=== PATIENT | male | born 1955 | race Caucasian/White ===

== ENCOUNTER → 2019-01-18 | Outpatient (CLI) | payer OTHER ==
[~2019-01-18] MED LIST: ATORVASTATIN CA80 M1 PO; CIPRO500 MG PO; CLOPIDOGREL75 MG PO; CYCLOBENZAPRINE5 M3 PO; FLAGYL500 MG PO; FUROSEMIDE40 MG PO; HARVONI1 TAB PO; IMODIUM A-D2 M2 PO; LISINOPRIL10 M1 PO; METFORMIN HCL500 M2 PO; MIRALAX17 GM/DOSE PO; POTASSIUM CHLO20 ME4 PO; SUBOXONE 8 MG-1 EACH SL
[2019-01-18 16:39] LABS: BASO # 0.1 10*3/uL (0.0-0.1); BASO % 0.3 % (0.0-1.0); EOS # 0.3 10*3/uL (0.0-0.4); EOS % 1.9 % (1.0-4.0); HEMATOCRIT 33.7 % (42.0-52.0); HEMOGLOBIN 11.1 g/dl (14.0-18.0); LYMPH # 1.9 10*3/uL (1.3-4.4); LYMPH % 10.3 % (27.0-41.0); MEAN CORPUSCULAR HGB 32.3 pg (27.0-31.0); MEAN CORPUSCULAR HGB CONC 32.9 g/dl (33.0-37.0); MEAN PLATELET VOLUME 9.3 fl (9.6-12.3); MONO # 0.9 10*3/uL (0.1-1.0); MONO % 4.9 % (3.0-9.0); NEUT # 14.8 10*3/uL (2.3-7.9); NEUT % 81.4 % (47.0-73.0); PLATELET COUNT AUTOMATED 619 10*3/uL (130-400); RED BLOOD COUNT 3.44 10*6/uL (4.50-5.90); RED CELL DISTRI WIDTH 12.2 % (0-14.5); WHITE BLOOD COUNT 18.1 10*3/uL (4.8-10.8)
[2019-01-18 17:07] LABS: BUN 33 mg/dl (7-24); CHLORIDE 98 mmol/L (98-107); CREATININE 1.19 mg/dL (0.70-1.30); POTASSIUM 3.9 mmol/L (3.5-5.1); SODIUM 134 mmol/L (136-145)
== END | disposition home or self-care (01) ==
LOC: LAB 16:07
PROVIDERS: Surgery
DX: D64.9 Anemia, unspecified (principal); R35.8 Other polyuria

== ENCOUNTER 2019-01-20 05:10 | Emergency (ER) | payer OTHER ==
[~2019-01-20] VITALS: Ht 175.2 cm; Wt 65.8 kg
--- NOTE | ~2019-01-20 | EKG ---
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
--- NOTE | ~2019-01-20 | EKG ---
[place], [place] ELECTROCARDIOGRAM REPORT NAME: JOHN ALONZO UNIT #: [id number] ROOM: DOCTOR: ANDREW DRAFT REPORT BIRTHDATE: [address] [facility] Test Date: 2019-01-20 Test Time: 05:29:24 Pat Name: JOHN ALONZO Department: Room: Gender: Icing Maker: SUSAN : 1955 Requested By: ANASTACIA WOODS Order Number: [id number] Reading MD: Measurements Intervals [place] Rate: 103 P: 73 NC: 147 QRS: 77 QRSD: 91 T: 108 QT: 358 QTc: 469 Interpretive Statements Sinus tachycardia Atrial premature complex Nonspecific T abnormalities, lateral leads Baseline wander in lead(s) I,III,aVL,V2,V3 Compared to ECG 12/27/2018 05:15:27 Atrial premature complex(es) now present Sinus rhythm no longer present Left-axis deviation no longer present T-wave abnormality still present CM:EKGRPT:ELECTROCARDIOGRAM REPORT 0529 [id number] ANASTACIA MONTES DE OCA DRAFT REPORT ANASTACIA WOODS DO
[~2019-01-20 05:10] MED LIST changes: -ATORVASTATIN CA80 M1 PO; -CLOPIDOGREL75 MG PO; -FUROSEMIDE40 MG PO; -IMODIUM A-D2 M2 PO; -POTASSIUM CHLO20 ME4 PO
[2019-01-20] MEDS ORDERED: FUROSEMIDE40 MG PO (05:17)
[2019-01-20] MEDS ORDERED: ATORVASTATIN CA80 M1 PO (05:18)
[2019-01-20] MEDS ORDERED: POTASSIUM CHLO20 ME4 PO (05:18)
[2019-01-20] MEDS ORDERED: CLOPIDOGREL75 MG PO (05:18)
[2019-01-20] MEDS ORDERED: SUBOXONE 8 MG-1 EACH SL (05:18)
[2019-01-20 05:31] LABS: BASO # 0.1 10*3/uL (0.0-0.1); BASO % 0.4 % (0.0-1.0); EOS # 0.1 10*3/uL (0.0-0.4); EOS % 0.8 % (1.0-4.0); HEMATOCRIT 36.9 % (42.0-52.0); HEMOGLOBIN 12.6 g/dl (14.0-18.0); LYMPH # 1.6 10*3/uL (1.3-4.4); LYMPH % 9.9 % (27.0-41.0); MEAN CORPUSCULAR HGB 32.4 pg (27.0-31.0); MEAN CORPUSCULAR HGB CONC 34.1 g/dl (33.0-37.0); MEAN PLATELET VOLUME 9.2 fl (9.6-12.3); MONO # 0.9 10*3/uL (0.1-1.0); MONO % 5.8 % (3.0-9.0); NEUT # 13.2 10*3/uL (2.3-7.9); NEUT % 82.3 % (47.0-73.0); PLATELET COUNT AUTOMATED 680 10*3/uL (130-400); RED BLOOD COUNT 3.89 10*6/uL (4.50-5.90); RED CELL DISTRI WIDTH 12.2 % (0-14.5)
[2019-01-20 05:37] LABS: MEAN CELL VOLUME 94.9 fl (80.0-94.0)
[2019-01-20 05:42] LABS: ACT PARTIAL THROMBO TIME 23.6 SECONDS (20.0-32.1); INTERNATIONAL NORM RATIO 1.2 (2.0-3.5)
[2019-01-20 05:49] LABS: ALBUMIN 3.9 gm/dl (3.1-4.5); ALKALINE PHOSPHATASE 142 U/L (45-117); BUN 24 mg/dl (7-24); CHLORIDE 97 mmol/L (98-107); CREATININE 1.07 mg/dL (0.70-1.30); POTASSIUM 3.7 mmol/L (3.5-5.1); SGOT/AST 53 IU/L (3-35); SGPT/ALT 109 U/L (12-78); SODIUM 135 mmol/L (136-145); TOTAL PROTEIN 8.9 gm/dL (6.4-8.2); TROPONIN I 0.026 ng/ml (<0.045)
[2019-01-20 08:35] VITALS: BP 130/88
[2019-01-20] MEDS ORDERED: IMODIUM A-D2 M2 PO (08:56)
== END 2019-01-20 09:44 | disposition home or self-care (01) ==
LOC: ED 05:10
PROVIDERS: Student in an Organized Health Care Education/Training Program
DX: K52.9 Noninfective gastroenteritis and colitis, unspecified (principal); R06.02 Shortness of breath; E11.9 Type 2 diabetes mellitus without complications; I25.2 Old myocardial infarction; F17.200 Nicotine dependence, unspecified, uncomplicated; Z95.1 Presence of aortocoronary bypass graft; Z88.0 Allergy status to penicillin; Z79.899 Other long term (current) drug therapy; Z79.84 Long term (current) use of oral hypoglycemic drugs; Z90.49 Acquired absence of other specified parts of digestive tract

== ENCOUNTER 2020-05-16 21:33 | Inpatient (IN) | payer OTHER ==
[~2020-05-16] VITALS: Ht 175.2 cm; Wt 74.4 kg
[~2020-05-16 21:33] MED LIST changes: +ATORVASTATIN CA80 M1 PO; +CLOPIDOGREL75 MG PO; +FUROSEMIDE40 MG PO; +IMODIUM A-D2 M2 PO; +POTASSIUM CHLO20 ME4 PO
[2020-05-16 21:48] VITALS: BP 192/133
[2020-05-16 22:02] LABS: BASO # 0.1 10*3/uL (0.0-0.1); BASO % 0.8 % (0.0-1.0); EOS # 0.6 10*3/uL (0.0-0.4); EOS % 6.4 % (1.0-4.0); HEMATOCRIT 44.1 % (42.0-52.0); LYMPH # 1.7 10*3/uL (1.3-4.4); LYMPH % 19.6 % (27.0-41.0); MEAN CELL VOLUME 95.7 fl (80.0-94.0); MEAN CORPUSCULAR HGB 31.5 pg (27.0-31.0); MEAN CORPUSCULAR HGB CONC 32.9 g/dl (33.0-37.0); MEAN PLATELET VOLUME 10.1 fl (9.6-12.3); MONO # 0.6 10*3/uL (0.1-1.0); MONO % 7.3 % (3.0-9.0); NEUT # 5.6 10*3/uL (2.3-7.9); NEUT % 64.4 % (47.0-73.0); PLATELET COUNT AUTOMATED 237 10*3/uL (130-400); RED BLOOD COUNT 4.61 10*6/uL (4.50-5.90); RED CELL DISTRI WIDTH 13.2 % (0-14.5); WHITE BLOOD COUNT 8.7 10*3/uL (4.8-10.8)
[2020-05-16 22:11] LABS: ACT PARTIAL THROMBO TIME 24.7 SECONDS (20.0-32.1)
[2020-05-16 22:23] LABS: ALBUMIN 4.1 gm/dl (3.1-4.5); ALKALINE PHOSPHATASE 66 U/L (45-117); BUN 15 mg/dl (7-24); CHLORIDE 107 mmol/L (98-107); CREATININE 0.84 mg/dL (0.70-1.30); LIPASE 73 U/L (73-393); SGOT/AST 24 IU/L (3-35); SGPT/ALT 34 U/L (12-78); SODIUM 138 mmol/L (136-145); TOTAL PROTEIN 8.2 gm/dL (6.4-8.2); TROPONIN I 0.027 ng/ml (<0.045)
[2020-05-17] VITALS (8 sets, daily range): BP systolic 116–167; BP diastolic 81–116
[2020-05-18] VITALS: BP 144/94
[2020-05-18 07:20] LABS: BASO # 0.1 10*3/uL (0.0-0.1); BASO % 0.7 % (0.0-1.0); EOS # 0.4 10*3/uL (0.0-0.4); EOS % 5.6 % (1.0-4.0); HEMATOCRIT 48.8 % (42.0-52.0); LYMPH # 1.7 10*3/uL (1.3-4.4); LYMPH % 23.8 % (27.0-41.0); MEAN CELL VOLUME 94.6 fl (80.0-94.0); MEAN CORPUSCULAR HGB 30.4 pg (27.0-31.0); MEAN CORPUSCULAR HGB CONC 32.2 g/dl (33.0-37.0); MEAN PLATELET VOLUME 10.4 fl (9.6-12.3); MONO # 0.6 10*3/uL (0.1-1.0); NEUT # 4.3 10*3/uL (2.3-7.9); NEUT % 60.6 % (47.0-73.0); PLATELET COUNT AUTOMATED 251 10*3/uL (130-400); RED BLOOD COUNT 5.16 10*6/uL (4.50-5.90); RED CELL DISTRI WIDTH 12.9 % (0-14.5); WHITE BLOOD COUNT 7.1 10*3/uL (4.8-10.8)
[2020-05-18 07:28] LABS: ACT PARTIAL THROMBO TIME 25.1 SECONDS (20.0-32.1); INTERNATIONAL NORM RATIO 1.1 (2.0-3.5)
[2020-05-18 07:50] LABS: ALBUMIN 3.9 gm/dl (3.1-4.5); ALKALINE PHOSPHATASE 67 U/L (45-117); BUN 24 mg/dl (7-24); CHLORIDE 104 mmol/L (98-107); CHOLESTEROL 150 mg/dL (<200); HDL CHOLESTEROL 42 mg/dl (40-60); LDL CHOLESTEROL 80 mg/dL (9-159); POTASSIUM 3.8 mmol/L (3.5-5.1); SGOT/AST 20 IU/L (3-35); SGPT/ALT 35 U/L (12-78); SODIUM 138 mmol/L (136-145); TOTAL PROTEIN 7.9 gm/dL (6.4-8.2); TRIGLYCERIDES 140 mg/dl (<150); VLDL CHOLESTEROL 28 mg/dL (6-40)
[2020-05-18 07:55] LABS: THYROID STIM HORMONE (HS) 0.365 uIU/ml (0.358-4.75)
[2020-05-18 08:00] VITALS: BP 150/90
[2020-05-18 08:40] LABS: VITAMIN D, 25-HYDROXY 28.5 ng/mL (30-100)
[2020-05-18] MEDS ORDERED: GLIPIZIDE10 M2 PO (09:07)
[2020-05-18] MEDS ORDERED: ANORO ELLIPTA1 EACH INH (09:07)
[2020-05-18 12:00] VITALS: BP 109/74
[2020-05-18 16:00] VITALS: BP 112/68
[2020-05-18] MEDS ORDERED: ASPIRIN CHEWABL81 MG PO (17:51)
[2020-05-18] MEDS ORDERED: METOPROLOL SUCC50 M2 PO (17:52)
[2020-05-18] MEDS ORDERED: LIPITOR80 MG PO (17:52)
[2020-05-18 20:00] VITALS: BP 95/61
[2020-05-18 21:54] VITALS: BP 108/62
[2020-05-19] VITALS: BP 99/72
[2020-05-19 08:00] VITALS: BP 129/77
[2020-05-19 09:20] LABS: CHLORIDE 99 mmol/L (98-107); CREATININE 1.09 mg/dL (0.70-1.30); POTASSIUM 3.5 mmol/L (3.5-5.1); SODIUM 136 mmol/L (136-145)
[2020-05-19 09:24] LABS: BUN 35 mg/dl (7-24)
[2020-05-19] MEDS ORDERED: METOPROLOL SUCC25 M2 PO (11:51)
[2020-05-19] MEDS ORDERED: LISINOPRIL2.5 MG PO (11:51)
[2020-05-19] MEDS ORDERED: LASIX20 MG PO (11:51)
[2020-05-19 12:00] VITALS: BP 125/68
== END 2020-05-19 13:43 | disposition home or self-care (01) | DRG 292 ==
LOC: ED 21:33 → 4E 05-17 01:39 → EDHOLD 05-17 01:39 → 4E 05-17 02:39
PROVIDERS: Internal Medicine; Nurse Practitioner Family; ADMIT Internal Medicine; ATTEND Internal Medicine
DX: I11.0 Hypertensive heart disease with heart failure (principal); R65.10 Systemic inflammatory response syndrome (SIRS) of non-infectious origin without acute organ dysfunction; I50.23 Acute on chronic systolic (congestive) heart failure; J44.9 Chronic obstructive pulmonary disease, unspecified; D75.89 Other specified diseases of blood and blood-forming organs; R19.7 Diarrhea, unspecified; K57.90 Diverticulosis of intestine, part unspecified, without perforation or abscess without bleeding; E11.65 Type 2 diabetes mellitus with hyperglycemia; Z88.0 Allergy status to penicillin; I25.2 Old myocardial infarction; Z90.49 Acquired absence of other specified parts of digestive tract; Z95.1 Presence of aortocoronary bypass graft; Z87.891 Personal history of nicotine dependence; Z82.2 Family history of deafness and hearing loss; Z79.02 Long term (current) use of antithrombotics/antiplatelets

== ENCOUNTER 2020-09-24 20:20 | Inpatient (IN) | payer MEDICARE, OTHER ==
[~2020-09-24] VITALS: Ht 175.2 cm; Wt 80.3 kg
[~2020-09-24 20:20] MED LIST changes: +ANORO ELLIPTA1 EACH INH; +ASPIRIN CHEWABL81 MG PO; +GLIPIZIDE10 M2 PO; +LASIX20 MG PO; +LIPITOR80 MG PO; +LISINOPRIL2.5 MG PO; +METOPROLOL SUCC25 M2 PO; +METOPROLOL SUCC50 M2 PO
[2020-09-24 20:29] VITALS: BP 147/130
[2020-09-24 21:28] LABS: BASO % 0.2 % (0.0-1.0); EOS % 0.1 % (1.0-4.0); LYMPH # 0.6 10*3/uL (1.3-4.4); LYMPH % 5.5 % (27.0-41.0); MEAN CORPUSCULAR HGB 31.5 pg (27.0-31.0); MEAN CORPUSCULAR HGB CONC 31.8 g/dl (33.0-37.0); MEAN PLATELET VOLUME 10.5 fl (9.6-12.3); MONO # 0.5 10*3/uL (0.1-1.0); NEUT % 88.1 % (47.0-73.0); PLATELET COUNT AUTOMATED 215 10*3/uL (130-400); RED BLOOD COUNT 3.84 10*6/uL (4.50-5.90); RED CELL DISTRI WIDTH 12.9 % (0-14.5); WHITE BLOOD COUNT 10.2 10*3/uL (4.8-10.8)
[2020-09-24 21:50] LABS: ALBUMIN 3.9 gm/dl (3.1-4.5); CREATININE 5.69 mg/dL (0.70-1.30); POTASSIUM 4.6 mmol/L (3.5-5.1)
[2020-09-24 21:53] LABS: TROPONIN I 0.644 ng/ml (<0.045)
[2020-09-25] VITALS (10 sets, daily range): BP systolic 93–160; BP diastolic 54–90
[2020-09-25 03:06] LABS: BASO % 0.4 % (0.0-1.0); EOS % 0.4 % (1.0-4.0); HEMATOCRIT 39.2 % (42.0-52.0); LYMPH # 1.1 10*3/uL (1.3-4.4); LYMPH % 14.2 % (27.0-41.0); MEAN CELL VOLUME 100.5 fl (80.0-94.0); MEAN CORPUSCULAR HGB 32.1 pg (27.0-31.0); MEAN CORPUSCULAR HGB CONC 31.9 g/dl (33.0-37.0); MEAN PLATELET VOLUME 10.1 fl (9.6-12.3); MONO # 0.8 10*3/uL (0.1-1.0); MONO % 9.8 % (3.0-9.0); NEUT # 5.8 10*3/uL (2.3-7.9); NEUT % 74.4 % (47.0-73.0); PLATELET COUNT AUTOMATED 175 10*3/uL (130-400); RED CELL DISTRI WIDTH 12.8 % (0-14.5); WHITE BLOOD COUNT 7.8 10*3/uL (4.8-10.8)
[2020-09-25 03:22] LABS: ALBUMIN 3.9 gm/dl (3.1-4.5); CREATININE 4.33 mg/dL (0.70-1.30); POTASSIUM 4.6 mmol/L (3.5-5.1)
[2020-09-25 03:29] LABS: THYROID STIM HORMONE (HS) 0.21 uIU/ml (0.358-4.75)
[2020-09-25 06:55] LABS: VITAMIN D, 25-HYDROXY 8.1 ng/mL (30-100)
[2020-09-25 09:20] LABS: BILIRUBIN Negative (Negative); BLOOD 2+ (Negative); CLARITY Clear (Clear); COLOR Yellow (Yellow); GLUCOSE Negative (Negative); KETONE Trace (Negative); LEUKO ESTERASE Negative (Negative); NITRITE Negative (Negative); PH 5.5 (4.5-8.0)
[2020-09-25 09:27] LABS: URINE AMPHETAMINES < 1000 (1000ng/ml); URINE BARBITURATES < 200 (200ng/ml); URINE BENZODIAZEPINES < 200 (200ng/ml); URINE CANNABINOIDS (THC) < 50 (50ng/ml); URINE COCAINE < 300 (300ng/ml); URINE METHADONE < 300 (300ng/ml); URINE OPIATES > 300 (300ng/ml)
[2020-09-25 09:29] LABS: URINE PHENCYCLIDINE < 25 (25ng/ml)
[2020-09-25 09:33] LABS: BACTERIA TRACE
[2020-09-25] MEDS ORDERED: ZESTRIL10 MG PO (16:46)
[2020-09-25] MEDS ORDERED: METOPROLOL SUCC50 M1 PO (16:47)
[2020-09-25 20:52] LABS: ABG BASE EXCESS -5.6 mmol/L (-2.0-2.0); ARTERIAL BLOOD GAS PH 7.304 (7.35-7.45); ARTERIAL BLOOD GAS PO2 40.6 (80-90)
[2020-09-26] VITALS: BP 147/94; BP 92/56
[2020-11-16] MEDS ORDERED: VITAMIN D350 MC2 PO (13:15)
[2020-11-16] MEDS ORDERED: DOXYCYCLINE100 M3 PO (13:15)
[2020-11-16] MEDS ORDERED: HYDROXYZINE HCL25 MG PO (13:15)
[2020-11-16] MEDS ORDERED: XARE20MG PO (13:15)
[2020-11-16] MEDS ORDERED: LASIX40 MG PO (13:15)
[2020-11-16] MEDS ORDERED: METOPROLOL SUC100 M1 PO (13:15)
== END 2020-09-26 04:21 | disposition short-term general hospital (02) | DRG 280 ==
LOC: ED 20:20 → EDHOLD 22:14 → 4E 22:14
PROVIDERS: Family Medicine; Internal Medicine; Physician Assistant; ADMIT Student in an Organized Health Care Education/Training Program; ATTEND Student in an Organized Health Care Education/Training Program
DX: I21.4 Non-ST elevation (NSTEMI) myocardial infarction (principal); N17.0 Acute kidney failure with tubular necrosis; G93.41 Metabolic encephalopathy; I25.810 Atherosclerosis of coronary artery bypass graft(s) without angina pectoris; S52.502A Unspecified fracture of the lower end of left radius, initial encounter for closed fracture; E72.20 Disorder of urea cycle metabolism, unspecified; I42.9 Cardiomyopathy, unspecified; I50.32 Chronic diastolic (congestive) heart failure; E55.9 Vitamin D deficiency, unspecified; F11.90 Opioid use, unspecified, uncomplicated; Z20.822 Contact with and (suspected) exposure to COVID-19; B19.20 Unspecified viral hepatitis C without hepatic coma; K57.90 Diverticulosis of intestine, part unspecified, without perforation or abscess without bleeding; E87.5 Hyperkalemia; J43.9 Emphysema, unspecified; I11.0 Hypertensive heart disease with heart failure; E66.3 Overweight; E78.5 Hyperlipidemia, unspecified; M25.532 Pain in left wrist; R74.01 Elevation of levels of liver transaminase levels; D53.9 Nutritional anemia, unspecified; E87.8 Other disorders of electrolyte and fluid balance, not elsewhere classified; E11.65 Type 2 diabetes mellitus with hyperglycemia; Z88.0 Allergy status to penicillin; Z90.49 Acquired absence of other specified parts of digestive tract; Z82.49 Family history of ischemic heart disease and other diseases of the circulatory system; Z95.1 Presence of aortocoronary bypass graft; Z68.25 Body mass index [BMI] 25.0-25.9, adult; X58.XXXA Exposure to other specified factors, initial encounter; Y93.89 Activity, other specified; Y92.89 Other specified places as the place of occurrence of the external cause; Y99.8 Other external cause status

== ENCOUNTER 2020-11-23 17:08 | Inpatient (IN) | payer OTHER ==
[~2020-11-23] VITALS: Ht 175.2 cm; Wt 70.1 kg
[~2020-11-23 17:08] MED LIST changes: +DOXYCYCLINE100 M3 PO; +HYDROXYZINE HCL25 MG PO; +LASIX40 MG PO; +METOPROLOL SUC100 M1 PO; +METOPROLOL SUCC50 M1 PO; +VITAMIN D350 MC2 PO; +XARE20MG PO; +ZESTRIL10 MG PO
[2020-11-23 18:09] VITALS: BP 116/76
[2020-11-23 20:46] VITALS: BP 134/106
[2020-11-23 21:41] LABS: BASO # 0.1 10*3/uL (0.0-0.1); BASO % 0.6 % (0.0-1.0); EOS # 0.1 10*3/uL (0.0-0.4); EOS % 0.5 % (1.0-4.0); HEMATOCRIT 51.5 % (42.0-52.0); LYMPH # 1.3 10*3/uL (1.3-4.4); LYMPH % 12.1 % (27.0-41.0); MEAN CELL VOLUME 92.1 fl (80.0-94.0); MEAN CORPUSCULAR HGB 30.8 pg (27.0-31.0); MEAN CORPUSCULAR HGB CONC 33.4 g/dl (33.0-37.0); MEAN PLATELET VOLUME 10.3 fl (9.6-12.3); MONO % 8.8 % (3.0-9.0); NEUT # 8.5 10*3/uL (2.3-7.9); NEUT % 77.4 % (47.0-73.0); PLATELET COUNT AUTOMATED 427 10*3/uL (130-400); RED BLOOD COUNT 5.59 10*6/uL (4.50-5.90); RED CELL DISTRI WIDTH 12.4 % (0-14.5)
[2020-11-23 21:55] LABS: ACT PARTIAL THROMBO TIME 25.9 SECONDS (20.0-32.1); INTERNATIONAL NORM RATIO 1.2 (2.0-3.5)
[2020-11-23 21:57] LABS: ALBUMIN 4.3 gm/dl (3.1-4.5); ALKALINE PHOSPHATASE 116 U/L (45-117); BUN 17 mg/dl (7-24); CHLORIDE 101 mmol/L (98-107); CREATININE 1.32 mg/dL (0.70-1.30); LIPASE 171 U/L (73-393); POTASSIUM 3.5 mmol/L (3.5-5.1); SGOT/AST 35 IU/L (3-35); SGPT/ALT 54 U/L (12-78); SODIUM 134 mmol/L (136-145); TOTAL PROTEIN 9.2 gm/dL (6.4-8.2)
[2020-11-23 22:01] LABS: TROPONIN I 0.052 ng/ml (<0.045)
[2020-11-23 22:37] LABS: BILIRUBIN Negative (Negative); BLOOD Trace-Lysed (Negative); CLARITY Clear (Clear); COLOR Yellow (Yellow); GLUCOSE 3+ (Negative); KETONE 2+ (Negative); LEUKO ESTERASE Negative (Negative); NITRITE Negative (Negative); PH 6.5 (4.5-8.0); SPECIFIC GRAVITY >= 1.030 (1.001-1.030); UROBILINOGEN 0.2 E.U./dl (0.0-1.0)
[2020-11-24 00:34] VITALS: BP 177/114
[2020-11-24 01:37] VITALS: BP 154/95
[2020-11-24 03:54] LABS: BASO # 0.1 10*3/uL (0.0-0.1); BASO % 0.6 % (0.0-1.0); EOS # 0.1 10*3/uL (0.0-0.4); EOS % 0.8 % (1.0-4.0); HEMATOCRIT 49.8 % (42.0-52.0); LYMPH # 1.7 10*3/uL (1.3-4.4); LYMPH % 17.5 % (27.0-41.0); MEAN CELL VOLUME 91.7 fl (80.0-94.0); MEAN CORPUSCULAR HGB 30.9 pg (27.0-31.0); MEAN CORPUSCULAR HGB CONC 33.7 g/dl (33.0-37.0); MEAN PLATELET VOLUME 9.9 fl (9.6-12.3); MONO # 0.9 10*3/uL (0.1-1.0); MONO % 8.8 % (3.0-9.0); NEUT # 7.1 10*3/uL (2.3-7.9); NEUT % 71.9 % (47.0-73.0); PLATELET COUNT AUTOMATED 365 10*3/uL (130-400); RED BLOOD COUNT 5.43 10*6/uL (4.50-5.90); RED CELL DISTRI WIDTH 12.2 % (0-14.5); WHITE BLOOD COUNT 9.9 10*3/uL (4.8-10.8)
[2020-11-24 04:21] LABS: ALBUMIN 3.7 gm/dl (3.1-4.5); ALKALINE PHOSPHATASE 102 U/L (45-117); BUN 18 mg/dl (7-24); CHLORIDE 105 mmol/L (98-107); CREATININE 1.09 mg/dL (0.70-1.30); POTASSIUM 3.9 mmol/L (3.5-5.1); SGOT/AST 28 IU/L (3-35); SGPT/ALT 46 U/L (12-78); SODIUM 137 mmol/L (136-145); TOTAL PROTEIN 8.1 gm/dL (6.4-8.2)
[2020-11-24 12:12] VITALS: BP 133/90
[2020-11-24 16:49] VITALS: BP 139/94
[2020-11-24 20:00] VITALS: BP 103/67
[2020-11-25] VITALS: BP 133/78
[2020-11-25 06:45] LABS: BASO # 0.1 10*3/uL (0.0-0.1); EOS # 0.3 10*3/uL (0.0-0.4); EOS % 3.6 % (1.0-4.0); HEMATOCRIT 45.6 % (42.0-52.0); LYMPH # 2.3 10*3/uL (1.3-4.4); MEAN CORPUSCULAR HGB 30.7 pg (27.0-31.0); MEAN CORPUSCULAR HGB CONC 32.7 g/dl (33.0-37.0); MEAN PLATELET VOLUME 10.4 fl (9.6-12.3); MONO # 0.8 10*3/uL (0.1-1.0); NEUT # 4.9 10*3/uL (2.3-7.9); NEUT % 58.9 % (47.0-73.0); PLATELET COUNT AUTOMATED 319 10*3/uL (130-400); RED BLOOD COUNT 4.85 10*6/uL (4.50-5.90); RED CELL DISTRI WIDTH 12.2 % (0-14.5); WHITE BLOOD COUNT 8.4 10*3/uL (4.8-10.8)
[2020-11-25 07:08] LABS: BUN 19 mg/dl (7-24); CHLORIDE 111 mmol/L (98-107); CREATININE 1.03 mg/dL (0.70-1.30); POTASSIUM 3.6 mmol/L (3.5-5.1); SODIUM 142 mmol/L (136-145)
[2020-11-25 08:00] VITALS: BP 167/95
[2020-11-25 12:00] VITALS: BP 129/59
[2020-11-25 16:00] VITALS: BP 143/85
[2020-11-25 20:00] VITALS: BP 132/84
[2020-11-26] VITALS: BP 138/82
[2020-11-26 08:00] VITALS: BP 145/60
[2020-11-26 12:00] VITALS: BP 135/70
[2020-11-26 16:00] VITALS: BP 127/75
[2020-11-26 20:00] VITALS: BP 131/81
[2020-11-26 23:50] VITALS: BP 128/64
[2020-11-27 07:20] VITALS: BP 130/80
[2020-11-27 12:00] VITALS: BP 120/80
[2020-11-27 16:00] VITALS: BP 108/67
[2020-11-27 20:00] VITALS: BP 145/72
[2020-11-28] VITALS: BP 138/78
[2020-11-28 08:00] VITALS: BP 150/85
[2020-11-28 12:00] VITALS: BP 125/80
[2020-11-28 16:00] VITALS: BP 134/69
[2020-11-28 20:00] VITALS: BP 146/85
[2020-11-29] VITALS: BP 143/82
[2020-11-29 07:30] VITALS: BP 138/80
[2020-11-29] MEDS ORDERED: LASIX40 MG PO (09:40)
[2020-11-29 12:00] VITALS: BP 130/84
== END 2020-11-29 14:53 | DRG 871 ==
LOC: ED 17:08 → EDHOLD 23:13 → 5E 23:13
PROVIDERS: Internal Medicine; Physician Assistant; ADMIT Internal Medicine; ATTEND Internal Medicine
DX: A41.9 Sepsis, unspecified organism (principal); N17.0 Acute kidney failure with tubular necrosis; I21.4 Non-ST elevation (NSTEMI) myocardial infarction; I25.810 Atherosclerosis of coronary artery bypass graft(s) without angina pectoris; N30.01 Acute cystitis with hematuria; I48.92 Unspecified atrial flutter; I50.20 Unspecified systolic (congestive) heart failure; I24.8 Other forms of acute ischemic heart disease; I16.0 Hypertensive urgency; I95.1 Orthostatic hypotension; R29.6 Repeated falls; D47.3 Essential (hemorrhagic) thrombocythemia; E80.6 Other disorders of bilirubin metabolism; E83.39 Other disorders of phosphorus metabolism; R79.82 Elevated C-reactive protein (CRP); E11.65 Type 2 diabetes mellitus with hyperglycemia; I11.0 Hypertensive heart disease with heart failure; E78.5 Hyperlipidemia, unspecified; B19.20 Unspecified viral hepatitis C without hepatic coma; I08.3 Combined rheumatic disorders of mitral, aortic and tricuspid valves; Z20.822 Contact with and (suspected) exposure to COVID-19; K57.90 Diverticulosis of intestine, part unspecified, without perforation or abscess without bleeding; J43.9 Emphysema, unspecified; Z88.0 Allergy status to penicillin; Z90.49 Acquired absence of other specified parts of digestive tract; Z95.1 Presence of aortocoronary bypass graft; Z87.891 Personal history of nicotine dependence; Z82.49 Family history of ischemic heart disease and other diseases of the circulatory system; I25.2 Old myocardial infarction; Z79.01 Long term (current) use of anticoagulants; Z79.899 Other long term (current) drug therapy; Z79.02 Long term (current) use of antithrombotics/antiplatelets; Z79.84 Long term (current) use of oral hypoglycemic drugs